=== PATIENT | female | born 1930 | race Caucasian/White ===

== ENCOUNTER 2016-07-03 14:00 | Inpatient (IN) | payer MEDICARE, BC ==
[~2016-07-03] VITALS: Ht 167.6 cm; Wt 85.3 kg
--- NOTE | ~2016-07-03 | OR ---
PATIENT'S NAME: LOPEZ SIMS [facility] AGE: 86 Y [address] ROOM: [place] [address] LOCATION: GPCU ADMIT DATE: 07/03/2016 OR/Procedure Report DISCHARGE DATE: 07/05/2016 FAMILY PHYSICIAN: Micaela Oliver MD ATTENDING PHYSICIAN: Ross Saavedra SURGEON: Ross Saavedra MD CHIPPING MACHINE OPERATOR: DATE OF PROCEDURE: 07/05/2016 PROCEDURE PERFORMED: Cardioversion. INDICATION: The patient had recurrent atrial flutter after a recent cardioversion, treated with metoprolol. She was then admitted and started on sotalol. She failed to convert spontaneously. DESCRIPTION OF PROCEDURE: She was brought to the procedural unit. Anesthesia provided propofol and when she was deeply asleep, I delivered a single, biphasic, synchronized, 70-joule shock with patches in the anterior and posterior configuration. The patient promptly converted from atrial flutter to sinus bradycardia and eventually she stabilized into sinus rhythm. CONCLUSION: Successful cardioversion from atrial flutter to sinus rhythm. ROSS SAAVEDRA MD PE/simin /[id number] d: 07/07/16 0122 t: 07/11/16 0923, OPERATIVE SUMMARY
[2016-07-03] MEDS ORDERED: LASIX40 MG PO (17:23)
[2016-07-03] MEDS ORDERED: DILTIAZEM 24HR180 MG PO (17:23)
[2016-07-03] MEDS ORDERED: ATORVASTATIN CA40 MG PO (17:24)
[2016-07-03] MEDS ORDERED: NAMENDA10 MG PO (17:24)
[2016-07-03] MEDS ORDERED: LEVOTHROID (S112 MCG PO (17:24)
[2016-07-03] MEDS ORDERED: PEPCID20 MG PO (17:25)
[2016-07-03] MEDS ORDERED: CALCIUM MAGNES1 EACH PO (17:26)
[2016-07-03] MEDS ORDERED: XARELTO15 MG PO (17:26)
[2016-07-03] MEDS ORDERED: ATIVAN 0.5MG0.5 MG PO (17:26)
[2016-07-03 17:27] LABS: ANION GAP 11.9 (10.0-19.0); CALCIUM 9.1 mg/dL (8.5-10.5); CREATININE 1.2 mg/dL (0.5-1.1); MAGNESIUM 2.2 mg/dL (1.8-2.6); POTASSIUM 3.9 mMol/L (3.7-5.1)
[2016-07-03] MEDS ORDERED: BROVANA15 MCG/2 M INH (17:27)
[2016-07-03] MEDS ORDERED: GLUCOPHAGE500 MG PO (17:27)
[2016-07-03] MEDS ORDERED: BICARSIM FORTE125 MG PO (17:28)
[2016-07-03] MEDS ORDERED: TYLENOL325 MG PO ×2 (17:28→17:34)
[2016-07-03] MEDS ORDERED: THERAGRAN-M1 TAB PO (17:30)
[2016-07-03] MEDS ORDERED: MAALOX LIQ UNIT30 ML PO (17:30)
[2016-07-03] MEDS ORDERED: PHENERGAN WITH15 ML PO (17:31)
[2016-07-03] MEDS ORDERED: PROMETH-CODEIN 65 ML PO (17:32)
[2016-07-03] MEDS ORDERED: ROBITUSSIN DM120 ML PO (17:33)
[2016-07-03] MEDS ORDERED: RESTASIS 0.05%1 VIAL OPHTH (17:33)
[2016-07-03] MEDS ORDERED: TYLENOL WITH C1 EACH PO (17:34)
--- NOTE | 2016-07-03 18:00 | NUR ---
Patient is very pleasant 86 yo female admitted from [place], [place], Dr. Turner's office w/ family via private vehicle. patient was not feeling well last week, went to the Dr. in [place]. went back to the [facility]. then went to the ER as she still didn't feel quite right, but nothing was determined. she was admitted to the group home yesterday for closer monitoring of medication adjustment. she is seen by Dr. Turner today. saline lock is started in right forearm without diff. pt minh well. Education is given as documented. patient denies questions. pneumatics are on bilat calves. patient minh well. call light is within reach. denies questions. fall socks, bracelet and allergy bracelet on pt. family deny needs. report is given to TAMAR Nagel.
--- NOTE | 2016-07-04 05:00 | NUR ---
Significant Event: A/O, slightly forgetful in the evenings, HR converts from afib/flutter to sinus tach, rates 60-70s this am, 2L O2/night per home setting, no c/o pain or SOB, 1 assist transfers, bed alarms on Follow up: continue with Sotolol and EKGs
--- NOTE | 2016-07-04 14:18 | NUR ---
Introduced self and role of care management to patient. She states she lives at the [facility] at [facility] in [facility]. She states that they just recently moved her to the group home side. She state that she is able to do some of her own ADL's. They group home staff does assist. She states that she would like to go back to the [facility] on discharge. I did call and speak with Nora at [facility] and she states that she will return to the group home side. Orders placed on chart. Will continue to follow.
--- NOTE | 2016-07-04 15:59 | NUR ---
Significant events: Patient is alert and oriented. Very forgetful, states "Did they bring my lunch yet?" after she had ate 75 % of her lunch or "Has the came today?" when he visted her this AM. Pleasant. Patient is on room air. O2 saturations in upper 90's. Lungs clear and diminished, except last assessment, right middle lobe and right lower lobe rhonchi. Patient clears secretions with cough. Denies pain. Bowel sounds active, bowel movement this afternoon. Up to bathroom with gait belt and one assist. Heart rhythm flips between atrial flutter and NSR; heart rates between 76-96. SBP's ranging from 123-145. Follow up: Monitor heart rhythm. EKG in AM. Possible cardioversion in AM. Possible discharge to [facility] at end of week. Continue plan of care.
--- NOTE | 2016-07-05 06:52 | NUR ---
Significant Event: Patient is alert/oriented x3, very forgetful at times. Vital signs have been stable. Rhythm continues to be back and forth between atrial flutter and sinus rhythm but rates have been stable 80-90's. Other vital signs stable. On room air with 2L O2 at night. Denies any pain. Patient has been NPO since midnight for possible cardioversion today. Follow up: Possible cardioversion today. If she does get cardioverted, then patient will be dismissed on Saturday.
--- NOTE | 2016-07-05 11:40 | NUR ---
Social visit with patient and family today. She has discharge orders on chart. Family will transport back to [facility] in [facility]. I called and notified [facility] of patient return. Orders faxed.
--- NOTE | 2016-07-05 12:03 | NUR ---
Significant Event: PT alert and oriented, forgetful. VSS, on room air. Cardioversion done at 0915, PT now in NSR, HR in the 60-70's. IV to R)FA, to be dc'd before PT transfers. PT ambulates with SBA. Tolerating cardiac diet. Voiding without difficulties. Denies pain, does get scheduled tylenol. Family will transfer PT to [facility]. Follow up:
== END 2016-07-05 13:10 | DRG 310 ==
LOC: GPCU 15:16
PROVIDERS: ADMIT Internal Medicine Cardiovascular Disease
PROC: 5A2204Z Restoration of Cardiac Rhythm, Single (ICD-10-PCS; principal; 2016-07-05)
DX: I48.92 Unspecified atrial flutter (principal); F03.90 Unspecified dementia, unspecified severity, without behavioral disturbance, psychotic disturbance, mood disturbance, and anxiety; E11.9 Type 2 diabetes mellitus without complications; E03.9 Hypothyroidism, unspecified; Z79.01 Long term (current) use of anticoagulants; Z79.84 Long term (current) use of oral hypoglycemic drugs
CPT/HCPCS: J7030

== ENCOUNTER 2016-07-23 10:44 | Inpatient (IN) | payer MEDICARE, BC ==
[~2016-07-23] VITALS: Ht 165.1 cm; Wt 82.6 kg
--- NOTE | ~2016-07-23 | OR ---
PATIENT'S NAME: LOPEZ SIMS [facility] AGE: 86 Y [address] ROOM: [place] [address] LOCATION: GPCU ADMIT DATE: 07/23/2016 OR/Procedure Report DISCHARGE DATE: 07/28/2016 FAMILY PHYSICIAN: Micaela Oliver MD ATTENDING PHYSICIAN: Domenic Saavedra SURGEON: Angel Sterling DO RESTAURANT SERVER: DATE OF PROCEDURE: 07/27/2016 PREOPERATIVE DIAGNOSIS: Paroxysmal atrial flutter with sinus bradycardia. PROCEDURE: Insertion of dual-chamber permanent pacemaker via the left subclavian system. BRIEF HISTORY: Mrs. Sims is an 86-year-old white female with the above- noted diagnosis. She has been brought to the operative suite today after informed consent was obtained for placement for device. The anterior chest wall was sterilely prepped and draped in usual fashion. 1% lidocaine was used to infiltrate the area in the left infraclavicular space. After appropriate IV sedation was achieved, the patient was placed into a Trendelenburg position. The subclavian vein was then accessed x2 and guidewires were placed under fluoroscopic guidance into the right atrium. An incision was created, a pocket was formed, and electrocautery was used for hemostasis, and the guidewires were brought through the incision. Via sheath and dilator assembly, we placed our leads. We began with our ventricular lead, it is a [employer] Ingevity lead, model 7741 and serial #[id number], it was placed in the right ventricular apex. Sensing R-waves of 9.1 with a measured threshold of 0.5 V at 0.5 msec. Pacing impedance was 1126. In a similar fashion, we placed our right atrial lead, also a [employer] Ingevity lead, model 7740 and serial #[id number], it was placed in the right atrial appendage. Sensing P-waves of 1.3 mV with a voltage threshold of 0.8 V and pacing impedance of 551 ohms. Each lead was connected to the generator which is a [employer] Essentio, model L111 and serial #[id number]. Leads and generator were placed into the pocket. Appropriate sensing and pacing was noted. Fluoroscopy showed good lead and generator position, and the incision was closed in a layered fashion with 2-0 Vicryl and 4-0 Monocryl. The patient had a sterile pressure dressing applied and an arm immobilizer applied and was transferred to the recovery in stable condition. ANGEL STERLING DO MCB/modl PATIENT'S NAME: LOPEZ SIMS [facility] AGE: 86 Y [address] ROOM: [place] [address] LOCATION: GPCU ADMIT DATE: 07/23/2016 OR/Procedure Report DISCHARGE DATE: 07/28/2016 FAMILY PHYSICIAN: Micaela Oliver MD ATTENDING PHYSICIAN: Domenic Saavedra /[id number] d: 08/02/162053 t: 08/03/16 0841, OPERATIVE SUMMARY
--- NOTE | ~2016-07-23 | DS ---
PATIENT'S NAME: LOPEZ SIMS [facility] AGE: 86 Y [address] ROOM: [address] [address] LOCATION: GPCU ADMIT DATE: 07/23/2016 Discharge Summary DISCHARGE DATE: 07/28/2016 FAMILY PHYSICIAN: Micaela Oliver MD ATTENDING PHYSICIAN: Domenic Saavedra PRIMARY DISCHARGE DIAGNOSIS: Tachy-jeremy syndrome. SECONDARY DISCHARGE DIAGNOSES: 1. Recurrent atrial flutter. 2. Dementia. 3. Hypothyroidism. 4. Diabetes mellitus type 2. 5. Hypertension. PROCEDURE: Dual-chamber permanent pacemaker implantation. HOSPITAL COURSE: This is an 86-year-old female admitted for planned flecainide initiation due to a recurrence of atrial flutter. The patient was initially started on flecainide 50 mg p.o. twice daily. On 07/24/2016, her flecainide was increased to 100 mg p.o. twice daily and was made n.p.o. for plans for possible direct current cardioversion. Overnight, she converted herself to a sinus rhythm and then did become bradycardic, so her flecainide was held. On 07/25/2016, she was maintaining sinus rhythm with a QTc of 443. On 07/26/2016, she developed a bradycardia overnight as well as a junctional rhythm, which resulted in a tachy-jeremy syndrome. A consult was placed for Dr. Cantu to evaluate for a dual-chamber permanent pacemaker implantation. Her Xarelto was held and plans were to proceed the next day with surgery. On 07/27/2016, she received a dual-chamber [employer] permanent pacemaker to her left subclavian. On 07/28/2016, her post-pacemaker site was stable, and she overall was in stable condition to be discharged to home with restarting of flecainide at 50 mg p.o. twice daily. DISCHARGE ORDERS: The patient is discharged to [facility]. She has restrictions of activity of no pushing, pulling, or lifting greater than 10 pounds for 2 weeks, and she must wear her left arm sling for 2 weeks as well. She is on a diabetic 1800-calorie diet, and she may begin showering on 07/29/2016. She will be followed by Occupational Therapy and Physical Therapy. She will have a followup appointment with Dr. Saavedra on 07/31/2016, and her family physician, Dr. Oliver will continue to follow. She will need a BMP and an EKG done with the appointment with Dr. Saavedra. In relation to her pacemaker site, she may cover with gauze if rubbing or irritation is caused. Family and the patient as well as the nursing facility are educated to call immediately with signs or symptoms of infection to pacemaker site. There is to be no powders, lotions, or creams to PATIENT'S NAME: LOPEZ SIMS [facility] AGE: 86 Y [address] ROOM: [place] [address] LOCATION: GPCU ADMIT DATE: 07/23/2016 Discharge Summary DISCHARGE DATE: 07/28/2016 FAMILY PHYSICIAN: Micaela Oliver MD ATTENDING PHYSICIAN: Domenic Saavedra the pacemaker incision and is to be left open to air. DISCHARGE MEDICATIONS: 1. Tylenol 325 mg p.o. twice daily. 2. Tylenol 650 mg p.o. every 6 hours as needed for pain or fever. Not to exceed 4000 mg per day of Tylenol. 3. Lipitor 40 mg p.o. daily at bedtime. 4. Pepcid 20 mg p.o. daily at bedtime. 5. Lasix 20 mg p.o. daily. 6. Levothyroxine 112 mcg p.o. daily. 7. Ativan 0.5 mg p.o. 3 times daily. 8. Glucophage 250 mg p.o. twice daily. 9. Xarelto 15 mg p.o. daily, starting on 07/29/2016. 10. Simethicone 125 mg p.o. twice daily. 11. Maalox 20 mL p.o. every 6 hours as needed for indigestion. 12. Robitussin 10 mL p.o. every 4 hours as needed for cough and congestion. 13. Multivitamin 1 tablet p.o. daily. 14. Namenda 10 mg p.o. daily at bedtime. 15. Calcium, magnesium, and vitamin D 1/2 tablet p.o. daily. 16. Brovana 1 vial inhaled twice daily. 17. Promethazine plus codeine 5 to 10 mL every 4 hours as needed for cough. 18. Restasis intra-ophthalmically drops as needed for dry eyes. 19. Systane gel intra-ophthalmically as needed for dry eyes. 20. Flecainide 500 mg p.o. twice daily. DISPOSITION: The patient is discharged once again to [facility] in stable condition. A discharge packet is sent to the nursing facility with instructions for activity, diet, medications, and followup instructions. MAYA DIAZ APRN FOR QUINTEN-MD LULU WELLER/modl /[id number] d: 08/04/16 0957 t: 08/06/16 0951, DISCHARGE SUMMARY
[~2016-07-23 10:44] MED LIST: ATIVAN 0.5MG0.5 MG PO; ATORVASTATIN CA40 MG PO; BICARSIM FORTE125 MG PO; BROVANA15 MCG/2 M INH; CALCIUM MAGNES1 EACH PO; DILTIAZEM 24HR180 MG PO; GLUCOPHAGE500 MG PO; LASIX40 MG PO; LEVOTHROID (S112 MCG PO; MAALOX LIQ UNIT30 ML PO; NAMENDA10 MG PO; PEPCID20 MG PO; PHENERGAN WITH15 ML PO; PROMETH-CODEIN 65 ML PO; RESTASIS 0.05%1 VIAL OPHTH; ROBITUSSIN DM120 ML PO; THERAGRAN-M1 TAB PO; TYLENOL WITH C1 EACH PO; TYLENOL325 MG PO; XARELTO15 MG PO
[2016-07-23] MEDS ORDERED: SYSTANE GEL EYE10 ML OPHTH (11:39)
--- NOTE | 2016-07-23 12:02 | NUR ---
Pt is 86 y/o female admit for medication initiation for . Pt alert and oriented x3. Allergy to sulfa. REd and yellow bracelets on. Pt resides at [facility] in [place], [place]. Hx atrial flutter,htn,hypercholest, DM,hypothyroid,arthritis,UTI,gerd,chronic cough,bronchitis,memory problems. Pt has been having problems with her aflutter/afib. Plan is to try Flecainide and keep her NPO after midnight for possible cardioversion tmw.
--- NOTE | 2016-07-23 15:59 | NUR ---
Significant event: Patient has history of dementia, forgetful at times. Alert. Oriented x 3 currently. Afebrile. HR 100's on admission, currently down to 70-80's, a-flutter continues. RA. Up standby assist. Lungs are clear/diminished. IV to L) hand 22 gauge. Denies pain. Has occasional urinary stress incontinence. 2+ tibial edema bilateral, as well as ankles. Follow Up: NPO at midnight, monitor QTc on EKG's.
--- NOTE | 2016-07-24 04:38 | NUR ---
Pt alert, occasionally forgetful. Asks repetative questions. Pleasant. Remains in aflutter 60-90's. Con't on flecanide loading. sba x1-can be wobbly at times. BED/chair alarms at all times. Plan: Cardioversion
--- NOTE | 2016-07-24 12:02 | NUR ---
Introduced myself and role of care management to pt. She states her family is coming tomorrow and unsure when she will be ready to return back to the [facility] in [place]. She states her family normally transports. WIll assist as needed.
--- NOTE | 2016-07-24 17:09 | NUR ---
Significant event: Alert. Oriented to person, at times disoriented to place, but reorients quickly, repetitive questions. Flecainide increased this morning, and cardizem was decreased. At 1500 patient switched to junctional rythm, confirmed by EKG, Dr. Turner is holding the flecainide and d/c'd the cardizem. SBP 120-150's. HR currently 50's. Follow Up: Continue current POC.
[2016-07-24 22:43] LABS: BILIRUBIN URINE NEGATIVE (NEGATIVE); BLOOD URINE NEGATIVE /UL (NEGATIVE); COLOR URINE YELLOW (YELLOW); GLUCOSE URINE NEGATIVE (NEGATIVE); KETONE URINE NEGATIVE (NEGATIVE); LEUKOCYTES URINE NEGATIVE /UL (NEGATIVE); NITRITE URINE NEGATIVE (NEGATIVE); PROTEIN URINE NEGATIVE (NEGATIVE); TURBIDITY URINE CLEAR (CLEAR); UROBILINOGEN URINE NORMAL (NORMAL)
[2016-07-25 04:28] LABS: ANION GAP 12.9 (10.0-19.0); CALCIUM 9.3 mg/dL (8.5-10.5); POTASSIUM 3.9 mMol/L (3.7-5.1)
--- NOTE | 2016-07-25 05:48 | NUR ---
Significant Event: Patient is alert and has been disoriented to place frequently throughout the night. Also disoriented to time (time of day, but does know the year). She has been impulsive and has not used call light appropriately, despite frequent reorientation and education. She is very forgetful and frequently asks the same questions repetitively. Cooperative with cares and answers questions appopriately. Has been experiencing urinary frequency throughout the night; Dr. Saavedra notified regarding this and obtained an order for UA, to determine if patient had possible UTI. UA was negative. Otherwise, vital signs have been stable, on room air. Denies any pain. Telemetry called around 2300 to inform that patient had gone into sinus rhythm. Follow up: Continue to monitor. She was NPO for possible cardioversion, but she is now in sinus rhythm. EKG this AM.
--- NOTE | 2016-07-25 11:55 | NUR ---
I did call Leticia at [facility] and pt is on the [facility] side due to early dementia but she thinks it is because of her heart. At night is when she gets more confused and yes impulsive. I told her she may come back today it depends on the md. Leticia stated if son Luther brings her they will accept her anytime of the day. Will continue to follow.
--- NOTE | 2016-07-25 15:27 | NUR ---
Significant Event:HAS BEEN CONFUSED ALL SHIFT. REQUESTING TO GO TO THE BATHROOM ABOUT EVERY 10-15 MINUTES. DOES NOT ALWAYS URINATE WHILE IN THERE. HAS BECOME INCREASINGLY AGITATED THROUGHOUT SHIFT. HAS TAKEN SELF OFF MONITOR AND TAKEN SELF EITHER INTO THE BATHROOM OR TO THE CLOSET LOOKING FOR HER CLOTHES SEVERAL TIMES THIS AFTERNOON. CHAIR ALARM HAS BEEN ON ALL SHIFT, HOWEVER PT IS QUICK AND GETS TO BATHROOM OR CLOSET PRIOR TO STAFF GETTING TO ROOM. HAS ALSO RESISTED STAFF WHEN ATTEMPTING TO GET HER BACK INTO CHAIR AND HAD TO HOLLAR FOR HELP TWICE SHE WOULD NOT STAY IN ROOM AND WAS TRYING TO LEAVE. PT VERBALLY ABUSIVE MOST OF SHIFT, CALLING STAFF DUMB AND STATED THAT SHE DID NOT NEED TO BE HERE AND THAT "YOU ARE ALL CRAZY HERE AND I DO NOT BELONG WITH YOU CRAZY PEOPLE". PT ALSO STATED " MY PARENTS ARE ON THEIR WAY AND YOU ARE GOING TO BE IN TROUBLE WHEN THEY GET HERE ". TELEMETRY SHOWED JUNCTIONAL THIS AM WITH RATES 41-44 FOR A COUPLE HOURS. RATES HAVE BEEN 60-90'S SINCE. CURRENTLY HAVE TA SITTING WITH PT SHE WOULD GET OUT OF CHAIR SOON I LEFT HER ROOM. Follow up:
--- NOTE | 2016-07-26 07:41 | NUR ---
Significant Event: Patient has been alert and disoriented to time/place. She has been pleasant and is cooperative once she is reoriented. Vital signs are stable. She has been in sinus rhythm throughout the night, rates 60-70's. Denies any pain/discomfort. Slept well in the recliner. She is impulsive and sets off alarms. Follow up: Plan to dismiss back to halfway today.
--- NOTE | 2016-07-26 12:46 | NUR ---
I did call and updated Leticia at [facility] that pt will get a pacemaker tomorrow and can return on Saturday. She states that should not be a problem but son Luther will need to get whatever new meds filled prior because there pharmacy will be closed.
--- NOTE | 2016-07-26 17:44 | NUR ---
PATIENT UP MULTIPLE TIMES TO BR W/ STAND BY ASSIST. PLAN FOR PACEMAKER TOMORROW EARLY AFTERNOON. RN SPOKE TO SON ON PHONE, UPDATED ON PLAN OF CARE AND SIGNED CONSENTS FOR PACER. NPO AFTER MIDNIGHT.
--- NOTE | 2016-07-27 04:55 | NUR ---
DISORENTIED TIME. FORGETFUL. NPO SINCE [place] FOR PACER PLACEMENT TODAY. DENIES PAIN. 1A TO BATHROOM. NO BM. PERMITS SIGNED
[2016-07-27 05:56] LABS: INR - (THERAPEUTIC) 1.03 (0.92-1.07); PROTIME 10.8 SECONDS (9.8-11.4)
[2016-07-27 06:04] LABS: ALBUMIN 3.5 gm/dL (3.5-5.0); ANION GAP 12.2 (10.0-19.0); CALCIUM 9.6 mg/dL (8.5-10.5); PHOSPHORUS 4.3 mg/dL (2.5-4.9); POTASSIUM 4.2 mMol/L (3.7-5.1)
--- NOTE | 2016-07-27 11:57 | NUR ---
I called and spoke with son Luther and introduced myself. I explained I have been keeping Bull Coreas up to date and that she can return Saturday if family can transport and any new meds get filled to take to them at the halfway. Luther states that will not be a problem. I updated Ines BOYLE and also Zarina BOYLE of this and left a note on the chart with the phone numbers and fax. Will assist as needed.
--- NOTE | 2016-07-27 20:21 | NUR ---
PATIENT HAD PACEMAKER PLACED TODAY. LEFT ARM IMMOBILIZER IN PLACE. VSS. UP TO BR FREQUENTLY.
--- NOTE | 2016-07-28 04:40 | NUR ---
Significant event: Patient very forgetful. Up to the bathroom every 20min throughout night trying to have stool. Pacemaker site C/D/I. VSS on ra. [facility].
--- NOTE | 2016-07-28 11:48 | NUR ---
Significant Event: A/Ox3. Forgetful at times. SBP-160s. P-80-110s. Afebrile. Room air. L) pacer incision open to air. Voids frequently. Last BM this AM. Patient has frequent bleching states this is normal for her. Chester given at noon for pain in pacer site. Sling to L) arm x2 weeks no lifting or pulling for 2 weeks.
== END 2016-07-28 11:45 | DRG 243 ==
LOC: GPCU 10:44
PROVIDERS: Nurse Practitioner Women's Health; ADMIT Internal Medicine Cardiovascular Disease
PROC: 02HK3JZ Insertion of Pacemaker Lead into Right Ventricle, Percutaneous Approach (ICD-10-PCS; principal; 2016-07-27)
PROC: 02H63JZ Insertion of Pacemaker Lead into Right Atrium, Percutaneous Approach (ICD-10-PCS; principal; 2016-07-27)
PROC: 0JH606Z Insertion of Pacemaker, Dual Chamber into Chest Subcutaneous Tissue and Fascia, Open Approach (ICD-10-PCS; principal; 2016-07-27)
DX: I11.9 Hypertensive heart disease without heart failure (principal); I48.92 Unspecified atrial flutter; F03.90 Unspecified dementia, unspecified severity, without behavioral disturbance, psychotic disturbance, mood disturbance, and anxiety; I49.5 Sick sinus syndrome; E03.9 Hypothyroidism, unspecified; E11.9 Type 2 diabetes mellitus without complications; I44.0 Atrioventricular block, first degree
CPT/HCPCS: C1785; C1898; J0360; J0690; J7030; J7050